=== PATIENT | female | born 1975 | race African-American/Black ===

== ENCOUNTER 2019-09-18 09:33 | Emergency (ER) | payer OTHER ==
[~2019-09-18] VITALS: Ht 162.6 cm; Wt 71.0 kg
[2019-09-18] MEDS ORDERED: TOPA100T12 PO (09:40)
[2019-09-18] MEDS ORDERED: FLUO20CA20 PO (09:40)
--- NOTE | 2019-09-18 10:30 | REP ---
Clinical: Possible acute cerebrovascular accident Comparison: None . Findings: The ventricles, sulci, and cisterns are normal in position and appearance. Nowak-white differentiation is maintained. No acute intracranial hemorrhage, mass/mass effect, pathology or trauma/injury. No evidence for acute infarction. No extra-axial fluid collection. Calvarium is intact. Paranasal sinuses and mastoid air cells are clear. Impression: Normal noncontrast head CT. No evidence for acute intracranial pathology or trauma/injury. Electronically Signed by Modesto Gonzalez MD 09/18/2019 10:22 A
--- NOTE | 2019-09-18 10:31 | REP ---
Clinical: Acute cerebrovascular accident . Comparison: None . Findings: The mediastinum and cardiac silhouette are stable and within normal limits for portable technique. The lung clark are clear without acute consolidation, effusion, or pneumothorax. Skeletal structures are intact. Impression: No acute cardiopulmonary process appreciated. Electronically Signed by Modesto Gonzalez MD 09/18/2019 10:22 A
[2019-09-18] MEDS ORDERED: METOCLOPRAMIDE INJ 10MG/2ML VIAL (J2765) IV ONE (10:45)
[2019-09-18] MEDS ORDERED: KETOROLAC 30 MG/ML VIAL (J1885) IV ONE (10:45)
[2019-09-18 13:16] VITALS: BP 117/75
--- NOTE | 2019-09-19 08:28 | ECGEPIP ---
[facility] - ED Test Date: 2019-09-18 Pat Name: EDY WILHELM Department: Room: - Gender: Female Medical Delivery Driver: rachel : 1975 Requested By: Paxton Manriquez Order Number: [id number] Reading MD: Keerthi Underwood Measurements Intervals [place] Rate: 74 P: 63 [place]: 153 QRS: 46 QRSD: 85 T: 48 QT: 387 QTc: 432 Interpretive Statements SINUS RHYTHM NSTTW abnormalities NO PRIOR Electronically Signed on 09-19-2019 8:28:38 EST by Keerthi Underwood
== END 2019-09-18 13:20 | disposition home or self-care (01) ==
LOC: M ED 09:33
DX: G43.809 Other migraine, not intractable, without status migrainosus (principal)
CPT/HCPCS: 70450; 71045; 93005; 93041; 94760; 96374; 96375; 99285; J1885; J2765